=== PATIENT | female | born 1985 | race Asian ===

== ENCOUNTER → 2021-04-24 | Emergency (ER) | payer SELFPAY | LOC: ED 21:27 | DX: S61.012A Laceration without foreign body of left thumb without damage to nail, initial encounter (principal); Z53.21 Procedure and treatment not carried out due to patient leaving prior to being seen by health care provider; X58.XXXA Exposure to other specified factors, initial encounter; Y93.89 Activity, other specified; Y92.89 Other specified places as the place of occurrence of the external cause; Y99.8 Other external cause status ==